=== PATIENT | male | born 1975 | race Caucasian/White ===

== ENCOUNTER → 2018-08-28 | Day surgery (SDC) | payer OTHER ==
[2018-08-22 15:46] LABS: ANION GAP 16.4 mmol/L (8-16); BLOOD UREA NITROGEN 15 mg/dL (7-26); BUN/CREATININE RATIO 15 (6-25); CARBON DIOXIDE 25 mmol/L (22-29); CHLORIDE 101 mmol/L (98-107); CREATININE, SERUM 0.99 mg/dL (0.72-1.25); EST GLOMERULAR FILTRATION RATE > 60 ML/MIN (60-); GLUCOSE 121 mg/dL (74-118); POTASSIUM 3.4 mmol/L (3.5-5.1); SODIUM 139 mmol/L (136-145)
[~2018-08-28] MED LIST: ACETAMINOPHEN 1000 MG/100 ML 100 ML IV ONE; ADDERALL 20 MG20 MG PO; ALBUTEROL SULF 0.083% NEB SOLN 3 ML NEB ONE; AMLODIPINE BESY10 MG PO; ASPIRIN EC81 MG PO; BETAMETHASONE DISODIUM PHOS 6 MG/ML VIAL ONE; BUPIVACAINE HCL 0.5% INJ 30 ML VIAL INJ ONE; CEFAZOLIN SOD 2 GM/D5W 50ML 50 ML IV ONE; CIALIS5 MG PO; DEXAMETHASONE SOD PHOS INJ 4 MG/ML VIAL ONE; FENTANYL CITRATE/PF 100MCG/2 ML INJ ONE; FIBER PO; FISH OIL 1,0001 EAC3 PO; LIDOCAINE HCL (LTA) 4 ML SOLN ONE; LIDOCAINE HCL 2% LOCAL INJ 5 ML SDV VIAL INJ ONE; LOSARTAN POTASS25 MG PO; LOSARTAN-HCTZ1 EAC1 PO; MELOXICAM PO; MENS ONE A DAY PO; MIDAZOLAM HCL 2 MG/2 ML VIAL ONE; ONDANSETRON HCL INJ 2 MG/ML VIAL ONE; POTASSIUM PO; PRAVASTATIN PO; PROPOFOL IV EMULSION 10 MG/ML 20 ML VIAL ONE; ROCURONIUM BROMIDE 10 MG/ML 5ML VIAL ONE; SCOPOLAMINE 1.5 MG PATCH ONE; SEVOFLURANE INHAL SOLN 250 ML PEN BTL ONE; SIMVASTATIN20 MG PO; [UNRECOGNIZED DRUG - OTHER] PO
[2018-08-28 12:30] VITALS: BP 119/70
--- NOTE | 2018-08-28 15:44 | Operative Report ---
DATE OF PROCEDURE: August 28, 2018 PREOPERATIVE DIAGNOSES 1. Heel spur right posterior ankle. 2. Achilles tendonitis with synovitis, right ankle. POSTOPERATIVE DIAGNOSES 1. Heel spur right posterior ankle. 2. Achilles tendonitis with synovitis, right ankle. OPERATION PERFORMED: 1. Removal of heel spur, right ankle. 2. Repair of Achilles tendon, right ankle. 3. Intraoperative fluroscopy. 4. Application of posterior splint. 5. Trigger point cortisone injection. 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 ANESTHESIA: General endotracheal. HEMOSTASIS: Pneumatic tourniquet, right thigh, inflated to 350 mmHg. ESTIMATED BLOOD LOSS: Less than 5 mL. MATERIALS: SpeedBridge Arthrex absorbable anchors. INJECTABLES: 8 mL of 8:2 mixture of 1/2% Marcaine plain and dexamethasone. Extra 10 mL of 1/2% Marcaine plain. INDICATIONS FOR PROCEDURE: Mr. Franklin is a pleasant male, 43 years of age having significant amount of discomfort and pain associated to his right ankle secondary to the aforementioned. He failed conservative treatment needing surgical intervention. He was educated on risks and complications of the procedures including, but not limited to deep venous thrombosis, pulmonary embolism, consistent pain, Achilles tendon rupture, CRPS, gait instability and others. He is willing and able to proceed. DESCRIPTION OF PROCEDURE: Under mild anesthesia, he was brought to the operating room. Prior to placing in the prone position on the operating room table, a well-padded pneumatic tourniquet was placed on the right thigh. Next, he was placed in the prone position on the operating room table. Prior to the same, he was also intubated via anesthesia services. High pressure point areas were padded appropriately, and then the distal right lower extremity was scrubbed prepped and draped in the usual aseptic manner. Attention was then directed to the posterior aspect of the right ankle, insertion of the Achilles where a lazy S incision was created with a transverse part of the incision at the insertion of the Achilles. Skin flaps were then created, albeit full thickness skin grafts were then created, both proximally and distally exposing a good window to the operation site. Next, a U-shaped Achilles tendon flap was raised and the posterior heel spur was identified as well as a bursal projection and then utilizing an osteotome and mallet, the spur was removed in total from the operative site as well as the bursal projection. A power bone rasp was then utilized to smooth out any rough edges. Next, procedure Achilles tendon repair. The significant myosynovitic changes that were debrided and then the Achilles was reapproximated back utilizing the SpeedBridge anchor system, and it was placed utilizing standard pediatric speech language pathologist's recommendations. Next, the area was copiously irrigated. Flores's test revealed adequate attachment of the Achilles. Closure was then performed in layers. Trigger point cortisone injection infiltrated to the surgical site to prevent postoperative inflammatory changes also help with the inflammatory changes encountered. Next, postoperative block was administered. Next, intraoperative fluoroscopy was utilized to assess for anatomic reduction of the bone spur was seen to be adequate. Next, posterior splint was applied to protect the surgical site, and then was done in gravity equinus. Subsequently, the patient was extubated, transferred to PACU with vital signs stable, although he was a bit aggressive in the PACU. Job#: [id number]
== END | disposition home or self-care (01) ==
LOC: OR 06:21
PROVIDERS: ATTEND Podiatrist Foot Surgery
DX: M76.61 Achilles tendinitis, right leg (principal); M77.31 Calcaneal spur, right foot; G47.33 Obstructive sleep apnea (adult) (pediatric); I10 Essential (primary) hypertension; E78.5 Hyperlipidemia, unspecified; E11.9 Type 2 diabetes mellitus without complications; E66.9 Obesity, unspecified; I49.1 Atrial premature depolarization; Z01.810 Encounter for preprocedural cardiovascular examination; Z01.812 Encounter for preprocedural laboratory examination; Z79.84 Long term (current) use of oral hypoglycemic drugs
CPT/HCPCS: 27650; 28118; 36415 ×2; 80048; 82948; 93005; C1713; J0720; J1100; J2001; J2250; J2405; 76001; J0690

== ENCOUNTER 2023-04-23 10:27 | Emergency (ER) | payer OTHER ==
[~2023-04-23] VITALS: Ht 180.3 cm; Wt 154.2 kg
[~2023-04-23 10:27] MED LIST changes: -ACETAMINOPHEN 1000 MG/100 ML 100 ML IV ONE; -ALBUTEROL SULF 0.083% NEB SOLN 3 ML NEB ONE; -BETAMETHASONE DISODIUM PHOS 6 MG/ML VIAL ONE; -BUPIVACAINE HCL 0.5% INJ 30 ML VIAL INJ ONE; -CEFAZOLIN SOD 2 GM/D5W 50ML 50 ML IV ONE; -DEXAMETHASONE SOD PHOS INJ 4 MG/ML VIAL ONE; -FENTANYL CITRATE/PF 100MCG/2 ML INJ ONE; -LIDOCAINE HCL (LTA) 4 ML SOLN ONE; -LIDOCAINE HCL 2% LOCAL INJ 5 ML SDV VIAL INJ ONE; -MIDAZOLAM HCL 2 MG/2 ML VIAL ONE; -ONDANSETRON HCL INJ 2 MG/ML VIAL ONE; -PROPOFOL IV EMULSION 10 MG/ML 20 ML VIAL ONE; -ROCURONIUM BROMIDE 10 MG/ML 5ML VIAL ONE; -SCOPOLAMINE 1.5 MG PATCH ONE; -SEVOFLURANE INHAL SOLN 250 ML PEN BTL ONE
[2023-04-23 10:43] VITALS: O2SAT 98
[2023-04-23] MEDS ORDERED: TETANUS/DIPHTHERIA TOX ADULT 0.5 ML SYR IM ONE (11:00)
== END 2023-04-23 17:44 | disposition left against medical advice (07) ==
LOC: ER 10:43
DX: S69.91XA Unspecified injury of right wrist, hand and finger(s), initial encounter (principal)